=== PATIENT | male | born 1980 | race Caucasian/White ===

== ENCOUNTER 2016-11-22 06:44 | Day surgery (SDC) | payer OTHER ==
[2016-11-20 12:59] VITALS: BMI 25.7
[2016-11-22] MEDS ORDERED: MIDAZOLAM HCL 2 MG/2 ML SINGLE DOSE VIAL ONE (08:35)
[2016-11-22] MEDS ORDERED: PROPOFOL 20 ML ONE ×2 (08:35→09:02)
[2016-11-22] MEDS ORDERED: ceFAZolin SODIUM 1 GM VIAL ONE ×2 (08:49→08:57)
[2016-11-22] MEDS ORDERED: ONDANSETRON 4 MG/2 ML VIAL ONE (08:57)
[2016-11-22] MEDS ORDERED: DEXAMETHASONE SOD PHOSPHATE 4 MG/1 ML VIAL ONE (08:57)
[2016-11-22] MEDS ORDERED: KETOROLAC TROMETHAMINE 30 MG/1 ML VIAL ONE (08:57)
--- NOTE | 2016-11-22 09:19 | DS ---
Physical Examination Vital Signs: Vital Signs Temperature 98.1 F 11/22/16 07:33 Pulse Rate 89 11/22/16 07:33 Respiratory Rate 19 11/22/16 07:33 Blood Pressure 111/71 11/22/16 07:33 O2 Sat by Pulse Oximetry (%) 97 11/22/16 07:33 Discharge Summary Reason For Visit: MEDIAL MENISCAL TEAR, LEFT KNEE Condition: Good - Instructions Diet, Activity, Other Instructions: Post Operative Instructions: Knee Arthroscopy Dr Marlon Rodriguez 1. Pain following an arthroscopy is variable. Some patients will have more pain than others. You have been provided with a prescription for medication that contains a narcotic. You are not allowed to drive while on this medication. You should NOT take Tylenol (Acetaminophen) when taking the pain medication ( it will result in an overdose). Feel free to take medications such as Ibuprofen or Naprosyn in addition to the pain medicine if you do not have any problems with the NSAID class of medications. 2. You are allowed to remove the bandages and shower in 24 hours unless directed otherwise. You are not allowed to bathe or go swimming until the sutures are removed. Put band-aids on the sutures after your shower and do not put any creams or lotions over the incisions. 3. You are allowed to put all your weight on the leg and bend your knee, unless directed otherwise. 4. Apply ice to the knee for 15 min every hour or so. You may continue this for as many days as you like. 5. Please call the office to schedule a visit to have your sutures removed. 6. If for any reason you believe you may have an infection or are concerned, please feel free to call me. I can be reached through our office number 24 hours a day. 7. Please call our office with any questions; we will review the surgical findings during your post operative visit. Disposition: HOME - Home Medications Comprehensive Discharge Medication List: Ambulatory Orders Escitalopram Oxalate [Lexapro -] 10 mg PO HS 11/20/16
--- NOTE | 2016-11-22 09:19 | OP ---
Operative Note - Note: Operative Date: 11/22/16 Pre-Operative Diagnosis: left knee MMT Surgeon: Marlon Rodriguez Anesthesiologist/FAMILY COURT REGISTRAR: Michel Rueda Anesthesia: Local Operative Report Dictated: Yes
[2016-11-22] MEDS ORDERED: LACTATED RINGERS SOLUTION 1,000 ML IV SCH (10:00)
[2016-11-22] MEDS ORDERED: ONDANSETRON 4 MG/2 ML VIAL IVPUSH PRN (10:01)
[2016-11-22] MEDS ORDERED: oxyCODONE HCL 5 MG TABLET PO PRN ×2 (10:01→10:02)
[2016-11-22 16:48] VITALS: BP 108/70; PULSE 62; TEMP 98.8
--- NOTE | 2016-11-25 09:31 | PATH ---
Surgical Pathology Report Patient Name: ARELI BALL Med. Rec. #: [id number] /Age/Gender: 1980 (Age: 36) / M Account: [id number] Location: [facility] Taken: 11/22/2016 Received: 11/22/2016 Reported: 11/25/2016 Physicians: Marlon Rodriguez M.D. Specimen(s) Received SHAVINGS LEFT KNEE Clinical History Left medial meniscus tear Final Diagnosis KNEE, LEFT, ARTHROSCOPIC SHAVING: FIBROCARTILAGE WITH MYXOID DEGENERATIVE CHANGES, ALONG WITH PORTIONS OF SYNOVIUM. Electronically Signed Nathanael Gunter M.D. Gross Description Received in formalin labeled shavings left knee are multiple pieces of carver white tissue measuring 1.5 x 0.7 x 0.3 cm. in aggregate. Hosiery Looper sections are submitted in one cassette. (AF) [email or web address]/11/24/2016
== END 2016-11-22 10:10 | disposition home or self-care (01) ==
LOC: FASU 06:44
PROVIDERS: ATTEND Orthopaedic Surgery
PROC: 0SBD4ZZ Excision of Left Knee Joint, Percutaneous Endoscopic Approach (ICD-10-PCS; principal; 2016-11-22 09:00)
DX: S83.242A Other tear of medial meniscus, current injury, left knee, initial encounter (principal); X58.XXXA Exposure to other specified factors, initial encounter; Y93.9 Activity, unspecified; Y92.9 Unspecified place or not applicable
CPT/HCPCS: 88304-TC